=== PATIENT | female | born 1960 | race Caucasian/White ===

== ENCOUNTER 2020-02-18 13:52 | Observation (INO) | payer OTHER ==
[~2020-02-18] VITALS: Ht 157.5 cm; Wt 95.6 kg
--- NOTE | 2020-02-18 14:22 | RAD ---
AP chest. HISTORY: Chest pain AP view was taken of the chest. Lungs are free of infiltrates. Heart is normal in size. The aorta is mildly prominent. There is no effusion. IMPRESSION: 1. No acute infiltrates. Electronically signed by: Elliot Woody MD (02/18/2020 2:20 PM) [id number]
[2020-02-18 14:26] LABS: BASO # 0.1 x10^3/uL (0.0-0.2); BASO % 1 % (0-3); EOS # 0.1 x10^3/uL (0.0-0.7); EOS % 1 % (0-3); HEMATOCRIT 44.2 % (36.0-47.0); LYMPH # 1.8 x10^3/uL (1.0-4.8); LYMPH % 25 % (24-48); MEAN CORPUSCULAR HEMOGLOBIN 32 pg (25-35); MEAN CORPUSCULAR HGB CONC 34 g/dL (31-37); MEAN CORPUSCULAR VOLUME 95 fL (79-100); MONO # 0.6 x10^3/uL (0.0-1.1); MONO % 9 % (0-9); NEUT # 4.6 x10^3uL (1.8-7.7); NEUT % 65 % (31-73); PLATELET COUNT 181 x10^3/uL (140-400); RED BLOOD COUNT 4.65 x10^6/uL (3.50-5.40); WHITE BLOOD COUNT 7.1 x10^3/uL (4.0-11.0)
[2020-02-18] MEDS ORDERED: ASPIRIN CHEWABLE 81 MG TABLET. PO ONE (14:30)
[2020-02-18] MEDS ORDERED: IV NORMAL SALINE 1,000ML 1,000 ML IV ONE (14:30)
--- NOTE | 2020-02-18 14:33 | PHYS DOC ---
General Adult EDM: Chief Complaint: CHEST PAIN HPI: HPI: 59-year-old female presents with chest pain. This was sudden onset while she was sitting on a chair about 1030 this morning. The pain is increased to an 8 out of 10. It is still an 8 out of 10. It is a central pain that radiates through to her mid back. It has some radiation to the left under her left breast. She has not had pain like this before. She denies shortness of breath above baseline or diaphoresis. She has a history of COPD but is not on breathing treatments or oxygen. Her only medications are levothyroxine and Topamax. She has not had a stress test recently. She had one many years ago and it was reported to be negative. She does not see a fender repairer. She has not had an echocardiogram or a catheter. Patient denies fever or chills. Review of Systems: Review of Systems: Constitutional: Denies fever or chills Eyes: Denies change in visual acuity HENT: Denies nasal congestion or sore throat Respiratory: Denies cough or shortness of breath Cardiovascular: Chest pain GI: Denies abdominal pain, nausea, vomiting, bloody stools or diarrhea : Denies dysuria Musculoskeletal: Denies back pain or joint pain Integument: Denies rash. Denies diaphoresis. Neurologic: Denies headache, focal weakness or sensory changes Endocrine: Denies polyuria or polydipsia Lymphatic: Denies swollen glands Psychiatric: Denies depression or anxiety Heart Score: HEART Score for Chest Pain: HEART Score for Chest Pain Response (Comments) Value History Moderately Suspicious 1 ECG Nonspecific Repolarizatio 1 Age >45 - < 65 1 Risk Factors 1 or 2 Risk Factors 1 Troponin < Normal Limit 0 Total 4 Risk Factors: Risk Factors: DM, Current or recent (<one month) smoker, HTN, HLP, family history of CAD, obesity. Risk Scores: Score 0 - 3: 2.5% MACE over next 6 weeks - Discharge Home Score 4 - 6: 20.3% MACE over next 6 weeks - Admit for Clinical Observation Score 7 - 10: 72.7% MACE over next 6 weeks - Early Invasive Strategies Current Medications: Current Meds: Current Medications Medications (Trade) Dose Ordered Sig/Maranda Start Time Stop Time Status Last Admin Dose Admin Aspirin (Aspirin Chewable) 324 mg 1X ONCE 02/18/20 14:30 02/18/20 14:31 DC 02/18/20 14:26 324 MG Sodium Chloride 1,000 ml @ 1,000 mls/hr 1X ONCE 02/18/20 14:30 02/18/20 15:29 Allergies: Allergies: Allergies Coded Allergies Type Severity Reaction Last Updated Verified No Known Drug Allergies 02/18/20 No Physical Exam: PE: Constitutional: Well developed, well nourished, no acute distress, non-toxic appearance. [] HENT: Normocephalic, atraumatic, bilateral external ears normal, oropharynx moist, no oral exudates, nose normal. [] Eyes: PERRLA, EOMI, conjunctiva normal, no discharge. [] Neck: Normal range of motion, no tenderness, supple, no stridor. [] Cardiovascular: Heart rate 46, regular rhythm, no murmur [] Lungs & Thorax: Bilateral breath sounds clear to auscultation [] Abdomen: Bowel sounds normal, soft, no tenderness, no masses, no pulsatile masses. [] Skin: Warm, dry, no erythema, no rash. [] Back: No tenderness, no CVA tenderness. [] Extremities: No tenderness, no cyanosis, no clubbing, ROM intact, no edema. [] Neurologic: Alert and oriented X 3, normal motor function, normal sensory function, no focal deficits noted. [] Psychologic: Affect normal, judgement normal, mood concerned. [] Current Patient Data: Labs: Laboratory Tests Test 02/18/20 14:11 Glucose (Fingerstick) 178 mg/dL (70-99) H EKG: EKG: Sinus bradycardia, rate 46, normal axis, no ST elevations or depressions. [] Radiology/Procedures: Radiology/Procedures: [] Impressions: AP chest. HISTORY: Chest pain AP view was taken of the chest. Lungs are free of infiltrates. Heart is normal in size. The aorta is mildly prominent. There is no effusion. IMPRESSION: 1. No acute infiltrates. Electronically signed by: Elliot Woody MD (02/18/2020 2:20 PM) [id number] DICTATED AND SIGNED BY: ELLIOT WOODY MD DATE: 02/18/20 1420 CC: SHADY DOMINGUEZ DO; YUDELKA PEÑA MD ~ Course & Med Decision Making: Course & Med Decision Making Pertinent Labs and Imaging studies reviewed. (See chart for details) On arrival, patient was given 324 of aspirin and an EKG was performed. The EKG was negative for ST elevation. The patient's labs are unremarkable. Her troponin is negative. Her urinalysis is negative for infection. Patient was having pain so she was given a liter normal saline and nitroglycerin sublingual. The nitro helped with the pain. The patient had an episode of vomiting and was given 5 mg of Zofran. I spoke with Dr. Thompson and he has accepted the patient for admission for chest pain rule out. [] Dragon Disclaimer: Dragon Disclaimer: This electronic medical record was generated, in whole or in part, using a voice recognition dictation system. Departure Departure: Impression: Primary Impression: Chest pain Qualified Codes: R07.2 - Precordial pain Disposition: ADMITTED INPATIENT Admitting Physician: Yves Thompson Condition: STABLE Referrals: YUDELKA PEÑA MD (PCP) Justification of Admission: Justification of Admission: Justification of Admission Dx: Comment: Comments: Chest pain rule out SHADY DOMINGUEZ DO Feb 18, 2020 14:33
[2020-02-18 14:37] LABS: CALCIUM 9.1 mg/dL (8.5-10.1); CREATININE 0.9 mg/dL (0.6-1.0); GFR 64.3; POTASSIUM 4.5 mmol/L (3.5-5.1)
[2020-02-18 14:43] LABS: ALBUMIN 3.5 g/dL (3.4-5.0); ALBUMIN/GLOBULIN RATIO 0.9 (1.0-1.7); TOTAL BILIRUBIN 0.2 mg/dL (0.2-1.0); TOTAL PROTEIN 7.4 g/dL (6.4-8.2)
[2020-02-18] MEDS ORDERED: NITROGLYCERIN SUBLINGUAL 0.4 MG BOTTLE OF 25. SL PRN (14:45)
--- NOTE | 2020-02-18 15:12 | EKG ---
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
[2020-02-18] MEDS ORDERED: ONDANSETRON PF 4 MG/2 ML VIAL. ONE (16:26)
[2020-02-18] MEDS ORDERED: ONDANSETRON PF 4 MG/2 ML VIAL. IVP ONE (16:30)
[2020-02-18] MEDS ORDERED: MORPHINE SULFATE 2 MG/ML DISP.SYRIN. IV ONE (16:45)
--- NOTE | 2020-02-18 18:24 | NUR ---
NURSING NOTE CONSULT CARDIOLOGY CONSULT FOR CARDIOLOGY TOLD TO DR Wells, HERE AT BEDSIDE ASSESSING PTTana CARRANZA RN.
[2020-02-18 18:25] VITALS: BP 180/66
[2020-02-18] MEDS ORDERED: ASPI-630 PO (18:32)
[2020-02-18] MEDS ORDERED: MORPHINE SULFATE 2 MG/ML DISP.SYRIN. IV PRN (18:45)
[2020-02-18] MEDS: PANTOPRAZOLE IV 40 MG VIAL. IVP SCH (19:40)
[2020-02-19 00:23] VITALS: BP 124/78
[2020-02-19 06:53] VITALS: BP 109/67
[2020-02-19] MEDS: PANTOPRAZOLE IV 40 MG VIAL. IVP SCH (08:29)
[2020-02-19] MEDS ORDERED: ASPIRIN CHEWABLE 81 MG TABLET. PO SCH (09:00)
[2020-02-19] MEDS ORDERED: PANTOPRAZOLE 40 MG TABLET. PO ONE (11:45)
[2020-02-19] MEDS ORDERED: PANT40TA3 PO (11:50)
--- NOTE | 2020-02-19 12:30 | SSS ---
ADMIT DATE: 02/19/2020 SHORT STAY SUMMARY HISTORY OF PRESENT ILLNESS: The patient is a 59-year-old female patient who presented to the Emergency Room with complaint of chest pain. The pain started while sitting in a chair about 10:30 in the morning, the pain has increased to an 8/10 in severity. It is central pain that radiates through to her mid back. It has some radiation under her left breast. She has never had this pain before. She denied any shortness of breath above the baseline or diaphoresis. She had a history of COPD and is not on breathing treatment of oxygen. The only medication she is on levothyroxine and Topamax. She has not had any stress test recently. She had one many years ago and was reported to be negative. She has never seen a foxing closer and has not had any echocardiogram or cardiac catheterization. She was extensively investigated in the Emergency Room and had an EKG, which basically showed that she was in sinus bradycardia at a rate of 46 beats per minute, no ST segment elevation. Her chest x-ray was unremarkable and has had one set of cardiac enzymes that was negative. She had a chest x-ray, which was also normal. She was seen in consultation by the foxing closer and apparently recommended that the patient can be discharged, although I have not and according to the nursing staff whom I talk to the foxing closer I have seen her and recommended that the patient can be discharged. PAST MEDICAL HISTORY: Significant for hypothyroidism, COPD, generalized osteoarthritis. PAST SURGICAL HISTORY: Unremarkable. ALLERGIES: She has no known drug allergies. MEDICATIONS: She is currently on following medications. She is on levothyroxine as well as Topamax. She is also on Klonopin and baby aspirin. FAMILY HISTORY: She has 1 sister and 2 brothers, younger one of the brothers has leukemia in remission. She does not know the age or the cause of of her father. Her mother at age of 59 because of complication of diabetes and COPD. SOCIAL HISTORY: She is single, never , has no children. She does smoke about half a pack a day and drinks alcohol occasionally and has not used marijuana for a long time. She is currently on disability. PHYSICAL EXAMINATION: GENERAL: On arrival to the Emergency Room, she looked well and was clearly in no apparent respiratory distress. No pallor, jaundice, cyanosis or thyromegaly. No jugular venous distention. No limb edema. VITAL SIGNS: Her heart rate was 47, blood pressure was 138/82, temperature was 97.9, respiratory rate was 14 and oxygen saturation was 93% on room air. HEAD, EYES, EARS, NOSE AND THROAT: Showed normocephalic and atraumatic. NECK: Supple. HEART: Showed normal first and second heart sounds. No gallop, rub or murmur. CHEST: Clear to auscultation. No crepitation or rhonchi. ABDOMEN: Distended, soft, nontender. No guarding or rigidity. No organomegaly. All hernial orifice intact. Bowel sounds normal. NEUROLOGIC: She was awake, alert, responding appropriately. All cranial nerves intact. EXTREMITIES: She moves extremities without difficulty. She ambulates without assistance or assistive devices. LABORATORY DATA: Her lab work on admission showed a serum sodium 137, potassium 4.5, chloride 102, bicarbonate 28, anion gap of 7, BUN 19, creatinine 0.9, estimated GFR was 64 mL per minute. Her glucose was 201, calcium was 9.1. Total bilirubin, AST, ALT, alkaline phosphatase were normal. Total protein was 7.4, albumin 3.5. Serum lipase was 158. First set of cardiac enzymes showed troponin to be less than 0.017. Her white cell count was 7100, hemoglobin 15, hematocrit 44, MCV 95, and platelet count of 181,000. Her serum lipase was normal at 158. ASSESSMENT AND PLAN: The patient was admitted and was started on IV Protonix together with morphine, nitroglycerin and baby aspirin. When I saw her this morning, she was chest pain free, remained hemodynamically stable. She was seen yesterday by the foxing closer who recommended that she can be discharged and to follow with her primary care physician. We strongly recommended that she should quit smoking. I will do 1 more set of cardiac enzymes to make sure that she has no elevation of her troponin and she can be discharged with a prescription for Protonix. FINAL DISCHARGE DIAGNOSES: Chest pain, atypical, likely due to gastroesophageal reflux disease. Other medical problems include hypothyroidism, chronic obstructive pulmonary disease, osteoarthritis. LEROY POOLE MD DR: MINI/lul JOB#: [id number] / [id number]
--- NOTE | 2020-02-19 14:56 | PDOC ---
PROVIDER NOTE PROVIDER NOTE PROVIDER NOTE Cardiology consultation note (late entry for 02/18/2020) Reason for consultation: Chest pain/bradycardia History of present illness: 59-year-old woman with past medical history as noted below who presents to the hospital in the setting of some chest discomfort. She states that she was in her usual state of health and was walking with her friend to the local restaurant and after drinking and eating something she had some chest pain. This was exacerbated when she was laying down. Upon arrival to the ER she was also noted to have some bradycardia and therefore the cardiology team was consulted. She currently denies any exertional angina, dyspnea, orthopnea or PND. No syncope or palpitations. She has been compliant with her medications according to her. Past medical history is notable for hypothyroidism. Social history is notable for tobacco abuse. She is not employed and she is on disability Family history noncontributory Allergies no known drug allergies Current cardiovascular medications: None Review of systems is negative for 10 out of 14 systems reviewed unless otherwise mentioned above in HPI The patient appeared well nourished and normally developed. Head exam is unremarkable. No scleral icterus or corneal arcus noted. Neck is without jugular venous distension, thyromegaly, or carotid bruits. Carotid upstrokes are brisk bilaterally. Lungs are clear to auscultation and percussion. Cardiac exam reveals the PMI to be normally sized and situated. Rhythm is regular. First and second heart sounds normal. No murmurs, rubs or gallops. Abdominal exam reveals normal bowel sounds, no masses, no organomegaly and no aortic enlargement. Extremities are nonedematous and both femoral and pedal pulses are normal. Msk: No traumua Neuro: No focal deficits EKG is unremarkable Troponins are negative Telemetry is unremarkable Impression: 1. Atypical chest pain with negative biomarkers and EKG, low risk presentation 2. Tobacco abuse 3. Probable gastroesophageal reflux disease Recommendations: 1. At this present time no further inpatient cardiovascular assessment is necessary. The patient may follow-up with her primary care physician and have further evaluation and consider ischemic testing as necessary depending on the improvement of her symptoms. Justification of Admission: Justification of Admission: Justification of Admission Dx: Comment: CHATA LYNCH MD Feb 19, 2020 14:56
[2020-02-19] MEDS ORDERED: ESCITALOPRAM OX10 MG PO (23:52)
[2020-02-19] MEDS ORDERED: CLON0.5T4 PO (23:52)
[2020-02-19] MEDS ORDERED: LEVO25TA4 PO (23:52)
[2020-02-19] MEDS ORDERED: TOPI100T42 PO (23:52)
[2020-02-19] MEDS ORDERED: GABA-586 PO (23:52)
[2020-02-20 08:07] LABS: HEMOGLOBIN A1C 5.4 % (4.8-5.6)
== END 2020-02-19 13:22 | disposition home or self-care (01) ==
LOC: ER 13:52 → 1 SOUTH 18:05 → INTOOBSV 18:05
PROVIDERS: ADMIT Internal Medicine; ATTEND Internal Medicine
DX: R07.89 Other chest pain (principal); K21.9 Gastro-esophageal reflux disease without esophagitis; E03.9 Hypothyroidism, unspecified; F17.210 Nicotine dependence, cigarettes, uncomplicated; J44.9 Chronic obstructive pulmonary disease, unspecified; M15.9 Polyosteoarthritis, unspecified; R00.1 Bradycardia, unspecified; Z79.899 Other long term (current) drug therapy
CPT/HCPCS: 36415; 71045; 80053; 82947; 83036; 83690; 84484; 85025; 93005; 96361; 96374; 96375; 96376; 99285; C9113; G0378; J2270; J2405; J7030; G0379

== ENCOUNTER → 2020-03-31 | Outpatient (CLI) | payer OTHER, MEDICAID ==
[2020-02-21 10:46] VITALS: BP 138/81
[~2020-03-31] MED LIST: ASPI-630 PO; CLON0.5T4 PO; ESCITALOPRAM OX10 MG PO; GABA-586 PO; LEVO25TA4 PO; PANT40TA3 PO; TOPI100T42 PO
[2020-03-31] MEDS: SINCALIDE 1.9 MCG in IV NORMAL SALINE 50ML 30 ML IV ONE (08:30)
--- NOTE | 2020-03-31 10:57 | RAD ---
EXAM: Nuclear hepatobiliary scan. HISTORY: Right upper quadrant pain. TECHNIQUE: Following intravenous administration of 5.5 mCi Tc 99m Choletec, anterior images of the abdomen were obtained at five minute intervals through one hour. Subsequently, 1.9 mcg CCK was administered and additional images to assess gallbladder ejection fraction were obtained. FINDINGS: There is prompt radiotracer uptake by the liver. No focal defect is seen. There is normal excretion into the biliary tree. The gallbladder is visualized within 10 minutes and there is free flow into the duodenum. The gallbladder ejection fraction is 12 percent. IMPRESSION: Decreased gallbladder ejection fraction of 12 percent. Electronically signed by: Yolie Powers MD (03/31/2020 10:54 AM) [id number]
== END | disposition home or self-care (01) ==
LOC: NM 07:52
PROVIDERS: ATTEND Physician Assistant
DX: R10.811 Right upper quadrant abdominal tenderness (principal)
CPT/HCPCS: 78227; A9537; J2805

== ENCOUNTER 2020-04-28 23:45 | Observation (INO) | payer OTHER, MEDICAID ==
[~2020-04-28] VITALS: Ht 157.5 cm; Wt 96.3 kg
--- NOTE | 2020-04-29 00:14 | PHYS DOC ---
Past History Past Medical History: No Pertinent History, Angina, CAD, Diabetes, Gallstones, High Cholesterol, Hypertension Past Surgical History: Other Additional Past Surgical Histo: "laproscopy" Smoking: Cigarettes Alcohol Use: Occasionally General Adult EDM: Chief Complaint: CHEST PAIN HPI: HPI: ".. I think it my gallbladder.. because I got ... bad gall bladder....and I got most sick after a cheese burger.. tonight.. and was to get it out.. but they would not take my COVID test from here.. and they cancel my surgery... but I do have cardiac stuff.. Patient is a 59 year old female who presents with above hx and complaints of severe epigastric pain. Patient stated the pain was more severe after eating a cheeseburger tonight. Patient states she was scheduled for an gallbladder removal however was canceled because was canceled. Patient also scheduled for gallbladder removal. However does have have a history of cardiac disorders. Patient has had previous angioplasty but no stent placement. Patient has past medical history of hypothyroidism, COPD, osteoarthritis, obesity, and deconditioning. Pt. follows with [facility] as primary. Patient reportedly had a negative COVID swab. However COVID swab not accepted for her gallbladder surgery. Review of Systems: Review of Systems: Constitutional: Denies fever or chills Eyes: Denies change in visual acuity HENT: Denies nasal congestion or sore throat Respiratory: Denies cough or shortness of breath Cardiovascular: Complaints of chest pain GI: Complaints of abdominal pain, nausea. Denies vomiting, bloody stools or diarrhea : Denies dysuria Musculoskeletal: Denies back pain or joint pain Integument: Denies rash Neurologic: Denies headache, focal weakness or sensory changes Endocrine: Denies polyuria or polydipsia Lymphatic: Denies swollen glands Psychiatric: Denies depression or anxiety Heart Score: HEART Score for Chest Pain: HEART Score for Chest Pain Response (Comments) Value History Moderately Suspicious 1 ECG Nonspecific Repolarizatio 1 Age >45 - < 65 1 Risk Factors 1 or 2 Risk Factors 1 Troponin < Normal Limit 0 Total 4 Risk Factors: Risk Factors: DM, Current or recent (<one month) smoker, HTN, HLP, family history of CAD, obesity. Risk Scores: Score 0 - 3: 2.5% MACE over next 6 weeks - Discharge Home Score 4 - 6: 20.3% MACE over next 6 weeks - Admit for Clinical Observation Score 7 - 10: 72.7% MACE over next 6 weeks - Early Invasive Strategies Family History: Family History: Family history has 1 sister and 2 brothers. Younger brother has leukemia. Mother age 59 due to diabetes and COPD. Does not know the cause of of father. Current Medications: Current Meds: See nursing for home meds. Allergies: Allergies: Allergies Coded Allergies Type Severity Reaction Last Updated Verified No Known Drug Allergies 02/18/20 No Physical Exam: PE: Constitutional: Moderate acute distress, non-toxic appearance. [] HENT: Normocephalic, atraumatic, bilateral external ears normal, oropharynx moist, no oral exudates, nose normal. [] Eyes: PERRLA, EOMI, conjunctiva normal, no discharge. [] Neck: Normal range of motion, no tenderness, supple, no stridor. [] Cardiovascular: Bradycardic heart rate regular rhythm, no murmur [, PMI to the left Lungs & Thorax: Bilateral breath sounds equal with scattered wheezes on auscultation [] Abdomen: Bowel sounds normal, soft, epigastric tenderness, no masses, no pulsatile masses. Obese. Rebound to epigastric area. Skin: Warm, dry, no erythema, no rash. [] Back: No tenderness, no CVA tenderness. [] Extremities: No tenderness, no cyanosis, no clubbing, ROM intact, ankle edema. No psoas sign. Neurologic: Alert and oriented X 3, normal motor function, normal sensory function, no focal deficits noted. [] Psychologic: Affect anxious, judgement normal, mood normal. [] Current Patient Data: Vital Signs: Vital Signs Date Time Temp Pulse Resp B/P (MAP) Pulse Ox O2 Delivery O2 Flow Rate FiO2 04/29/20 00:03 97.6 51 18 135/96 (109) 99 Room Air EKG: EKG: My interpretation EKG shows a sinus bradycardia 50 bpm. No findings of acute S XIAO or contralateral changes [] Radiology/Procedures: Radiology/Procedures: [][address] [address] IMAGING REPORT Signed PATIENT: JALEN WALLER ACCOUNT: [id number] : 1960 LOCATION: ER AGE: 59 SEX: F EXAM STATUS: REG ER ORD. PHYSICIAN: MARYAN VIZCARRA MD REASON: abd. pain , chest pain PROCEDURE: ACUTE ABDOMEN SERIES PA chest and AP upright supine abdomen x-rays HISTORY: Abdominal pain and chest pain. FINDINGS: Heart size normal. Mild tortuosity aortic arch is stable to prior x-rays. No pneumothorax, pulmonary opacities or pleural effusions. Small calcified granuloma right midlung stable. No pneumoperitoneum. Thoracolumbar disc osteophytes. Mild volume of stool within the right-sided colon. Numerous pelvic calcifications most likely phleboliths grossly stable to prior x-rays. No evidence of small bowel obstruction with no dilation of bowel or increased air-fluid levels. IMPRESSION: No acute process in the chest. No bowel obstruction evident. Electronically signed by: Raul Lux MD (04/29/2020 2:29 AM) [facility] [place] DICTATED AND SIGNED BY: RAUL LUX MD DATE: 04/29/20228 CC: MARYAN VIZCARRA MD; CHRIS HENSON PAC ~ Course & Med Decision Making: Course & Med Decision Making Pertinent Labs and Imaging studies reviewed. (See chart for details) Discussed presentation, testing and tx.plan with Dr. Thompson- Admit for Cardiology consult. Impression: 1. Chest Pain 2. History of coronary artery disease 3. Bradycardia 4. Diabetes = 155 5. Tobacco 6. Hx biliary colic 7. Hx. COVID negative Test- Not at our hospital system. [] Dragon Disclaimer: Dragon Disclaimer: This electronic medical record was generated, in whole or in part, using a voice recognition dictation system. Departure Departure: Disposition: 01 DC HOME SELF CARE/HOMELESS Condition: STABLE Referrals: CHRIS HENSON PAC (PCP) Nesha Disclaimer This chart was dictated in whole or in part using Voice Recognition software in a busy, high-work load, and often noisy Emergency Department environment. It may contain unintended and wholly unrecognized errors or omissions. Dragon Disclaimer This chart was dictated in whole or in part using Voice Recognition software in a busy, high-work load, and often noisy Emergency Department environment. It may contain unintended and wholly unrecognized errors or omissions. MARYAN VIZCARRA MD Apr 29, 2020 00:13
[2020-04-29] MEDS ORDERED: MORPHINE SULFATE 10 MG/ML SYRINGE. SQ ONE (00:45)
[2020-04-29 00:48] LABS: BASO % 0 % (0-3); EOS % 0 % (0-3); HEMATOCRIT 41.6 % (36.0-47.0); HEMOGLOBIN 14.1 g/dL (12.0-15.5); LYMPH # 1.2 x10^3/uL (1.0-4.8); LYMPH % 14 % (24-48); MEAN CORPUSCULAR HEMOGLOBIN 32 pg (25-35); MEAN CORPUSCULAR HGB CONC 34 g/dL (31-37); MEAN CORPUSCULAR VOLUME 95 fL (79-100); MONO # 0.5 x10^3/uL (0.0-1.1); MONO % 5 % (0-9); NEUT # 7.2 x10^3uL (1.8-7.7); NEUT % 80 % (31-73); PLATELET COUNT 179 x10^3/uL (140-400); RED BLOOD COUNT 4.39 x10^6/uL (3.50-5.40); RED CELL DISTRIBUTION WIDTH 13.3 % (11.5-14.5); WHITE BLOOD COUNT 8.9 x10^3/uL (4.0-11.0)
[2020-04-29 00:55] LABS: CALCIUM 9.9 mg/dL (8.5-10.1); CREATININE 0.8 mg/dL (0.6-1.0); GFR 73.7; POTASSIUM 3.8 mmol/L (3.5-5.1)
[2020-04-29] MEDS ORDERED: ONDANSETRON PF 4 MG/2 ML VIAL. IVP ONE (01:00)
[2020-04-29] MEDS ORDERED: MAGNESIUM HYDROXIDE 2,400 MG/30 ML ORAL.SUSP. PO ONE (01:00)
[2020-04-29] MEDS ORDERED: IV RINGERS SOLUTION,LACTATED 1,000 ML IV SCH (01:00)
[2020-04-29] MEDS ORDERED: FAMOTIDINE 20 MG/2 ML VIAL IVP ONE (01:00)
[2020-04-29] MEDS ORDERED: ASPIRIN CHEWABLE 81 MG TABLET. PO ONE (01:00)
[2020-04-29 01:07] LABS: ALBUMIN 3.8 g/dL (3.4-5.0); DIRECT BILIRUBIN 0.1 mg/dL (0.0-0.2); MAGNESIUM 2.3 mg/dL (1.8-2.4); TOTAL BILIRUBIN 0.1 mg/dL (0.2-1.0); TOTAL PROTEIN 7.9 g/dL (6.4-8.2)
--- NOTE | 2020-04-29 01:39 | EKG ---
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
--- NOTE | 2020-04-29 02:32 | RAD ---
PA chest and AP upright supine abdomen x-rays HISTORY: Abdominal pain and chest pain. FINDINGS: Heart size normal. Mild tortuosity aortic arch is stable to prior x-rays. No pneumothorax, pulmonary opacities or pleural effusions. Small calcified granuloma right midlung stable. No pneumoperitoneum. Thoracolumbar disc osteophytes. Mild volume of stool within the right-sided colon. Numerous pelvic calcifications most likely phleboliths grossly stable to prior x-rays. No evidence of small bowel obstruction with no dilation of bowel or increased air-fluid levels. IMPRESSION: No acute process in the chest. No bowel obstruction evident. Electronically signed by: Roberto Carlos Lux MD (04/29/2020 2:29 AM) [facility] [place]
[2020-04-29] MEDS ORDERED: ONDANSETRON PF 4 MG/2 ML VIAL. IVP PRN (03:00)
[2020-04-29] MEDS ORDERED: ACETAMINOPHEN 325 MG TABLET PO PRN (03:00)
[2020-04-29] MEDS ORDERED: ANTI-COAG MONITOR BY PHARMACY. MC PRN (03:15)
[2020-04-29] MEDS ORDERED: ENOXAPARIN ** NOTE DOSE ** SYRINGE SQ ONE (03:30)
[2020-04-29] MEDS: NITROGLYCERIN OINT 1 GM PACKET. TP SCH ×4 (03:30→21:46)
[2020-04-29 03:55] LABS: BARBITURATES NEG (NEG); BENZODIAZEPINES NEG (NEG); CANNABINOIDS NEG (NEG); COCAINE NEG (NEG); METHADONE NEG (NEG); OPIATES POS (NEG); PHENCYCLIDINE NEG (NEG)
[2020-04-29 03:56] LABS: BACTERIA,URINE 0 /HPF (0-FEW); BILIRUBIN,URINE NEG (NEG); CLARITY,URINE CLEAR; COLOR,URINE YELLOW; GLUCOSE,URINE NEG (NEG); NITRITE,URINE NEG (NEG); RBC,URINE 0 /HPF (0-2); SQUAMOUS EPITHELIAL CELL,UR OCC /LPF; UROBILINOGEN,URINE 0.2 mg/dL (0.2 mg/dL); WBC,URINE OCC /HPF (0-4)
[2020-04-29 04:01] LABS: AMPHETAMINE/METHAMPHETAMINE NEG (NEG)
--- NOTE | 2020-04-29 05:25 | NUR ---
The patient, JALEN WALLER, 59 y/o, F admitted by LEROY POOLE MD, was given written information regarding hospital policies, unit procedures and contact persons. Valuables were checked and documented. pts vitals were taken and are stable. pt had no complaints of pain or shortness of air. pt is currently in bed resting.
[2020-04-29 06:25] VITALS: BP 131/79
[2020-04-29] MEDS: ASPIRIN CHEWABLE 81 MG TABLET. PO SCH (08:00)
[2020-04-29] MEDS ORDERED: MORPHINE SULFATE 4 MG/ML DISP.SYRIN. IV PRN (08:30)
[2020-04-29] MEDS: IPRATRPIUM/ALBUTEROL 0.5/2.5MG 3 ML NEBU. NEB SCH ×3 (09:34→19:52)
[2020-04-29 11:11] VITALS: BP 116/75
[2020-04-29] MEDS ORDERED: IOHEXOL 350 MG/ML 100 ML VIAL. IV ONE (13:00)
[2020-04-29 13:20] LABS: HEMOGLOBIN 13.1 g/dL (12.0-15.5); RED BLOOD COUNT 4.11 x10^6/uL (3.50-5.40); RED CELL DISTRIBUTION WIDTH 13.4 % (11.5-14.5); WHITE BLOOD COUNT 7.1 x10^3/uL (4.0-11.0)
[2020-04-29 13:28] LABS: THYROID STIM HORMONE (TSH) 3.668 uIU/mL (0.358-3.740)
[2020-04-29 13:31] LABS: CALCIUM 9.3 mg/dL (8.5-10.1); CREATININE 0.8 mg/dL (0.6-1.0); GFR 73.7; POTASSIUM 3.6 mmol/L (3.5-5.1)
[2020-04-29 13:36] LABS: ALBUMIN 3.3 g/dL (3.4-5.0); ALBUMIN/GLOBULIN RATIO 0.9 (1.0-1.7); TOTAL BILIRUBIN 0.3 mg/dL (0.2-1.0); TOTAL PROTEIN 7.1 g/dL (6.4-8.2)
--- NOTE | 2020-04-29 13:44 | HP ---
ADMIT DATE: 04/29/2020 HISTORY OF PRESENT ILLNESS: The patient is a 59-year-old female patient who presented with a complaint of severe epigastric pain, the pain was more severe after eating a cheeseburger. She apparently was scheduled for gallbladder removal on 05/11/2020; however, the patient has a history of cardiac disorders, she had previous angioplasty, but no stent placement and therefore, the patient was extensively investigated in the Emergency Room and was admitted with chest pain and she has a history of coronary artery disease and also to consult the Cardiology team. PAST MEDICAL HISTORY: Significant for hypothyroidism, chronic obstructive pulmonary disease, coronary artery disease, gastroesophageal reflux disease. She does have hypertension, hyperlipidemia and apparently, she was transferred before to [facility]. She actually underwent cardiac catheterization on 02/21/2020, which basically showed that she has normal left-sided filling pressure, normal left ventricular systolic function with ejection fraction of 55%, one-vessel coronary artery disease involving the left anterior descending without significant obstruction. In any case, the patient was basically extensively investigated in the Emergency Room and had had lab work as well as imaging studies. PAST SURGICAL HISTORY: Unremarkable except for cardiac catheterization. ALLERGIES: She has no known drug allergies. FAMILY HISTORY: She has 1 sister and 2 brothers, the younger one of her brothers has leukemia, in remission. She does not know the age and the cause of of her father. Her mother at the age of 59 because of complication of diabetes and COPD. SOCIAL HISTORY: She is single, never , has no children. She smokes now only 2 cigarettes a day, drinks alcohol occasionally. She has not used any marijuana for a long time. She is currently on disability. MEDICATIONS: She is currently on following medications: She is on aspirin 81 mg once a day, clonazepam 0.5 mg once a day, gabapentin 300 mg at bedtime, topiramate for Topamax 100 mg at bedtime, escitalopram 10 mg daily, and levothyroxine 25 mcg once a day. PHYSICAL EXAMINATION: GENERAL: On arrival to the Emergency Room, the patient looked well and was clearly in no apparent respiratory distress. No pallor, jaundice, cyanosis or thyromegaly. No jugular venous distention. No limb edema. VITAL SIGNS: Her heart rate was 56, blood pressure was 135/96, temperature was 97.6, respiratory rate was 18 and oxygen saturation was 97%. HEAD, EYES, EARS, NOSE AND THROAT: Showed normocephalic, atraumatic. NECK: Supple. HEART: Showed normal first and second heart sounds. No gallop or murmur. CHEST: Clear to auscultation. No crepitation or rhonchi. ABDOMEN: Distended, soft. Tenderness mostly in the epigastric area. No guarding or rigidity. No organomegaly. All hernial orifices intact. Bowel sounds normal. NEUROLOGIC: She is grossly intact. LABORATORY DATA: Her lab work on arrival to the Emergency Room showed a white cell count of 8900, hemoglobin 14, hematocrit 42, MCV 95, and platelet count of 179,000. Her chemistry showed a serum sodium 138, potassium 3.8, chloride 104, bicarbonate 25, anion gap of 9, BUN of 22, creatinine 0.8, estimated GFR was 74 mL per minute. Her glucose 155, calcium was 9.9, magnesium 2.3. Total bilirubin, AST, ALT, alkaline phosphatase were normal. Total beta natriuretic peptide was 44. Troponin was less than 0.017. Total protein was 7.9, albumin was 3.8. Amylase and lipase are both normal. Her prothrombin time was 9.7, INR of 0.9, aPTT was 22 and D-dimer was 0.84. Urinalysis was unremarkable. Toxic screen was positive for opiates. Her acute abdomen series showed that the heart size is normal, mild tortuosity of the aortic arch is stable compared to prior x-rays. No pneumothorax, pulmonary opacities or pleural effusion. Small calcified granuloma in the right mid lung, stable, no pneumoperitoneum, thoracolumbar disk osteophytes, mild volume of stool within the right-sided colon, numerous pelvic calcification, most likely phleboliths, grossly stable to prior x-rays. No evidence of small bowel obstruction with no dilatation of bowel or increased air fluid levels. PLAN: The patient will be admitted. We will do 2 more sets of cardiac enzymes and also repeat her labs, particularly serum lipase and decide on further management accordingly. LEROY POOLE MD DR: MINI/lul JOB#: [id number] / [id number]
[2020-04-29 14:48] VITALS: BP 123/83
--- NOTE | 2020-04-29 15:02 | NUR ---
This nursing surveillance supervisor spoke with nursing surveillance supervisor (Amalia) at [facility] regarding transfer once there is an open bed for GB disease, pt had been scheduled for enma, which was cancelled due to no available covid results. Addendum: 04/29/20 at 1504 by ANJANA HAMM RN Amalia was not aware of the pending transfer. She will check things out and callback.
--- NOTE | 2020-04-29 15:18 | RAD ---
EXAM: CT angiography of the chest with intravenous contrast. HISTORY: Chest pain. TECHNIQUE: Computed tomographic images of the chest were obtained following the administration of intravenous contrast according to angiography protocol. Multiplanar reformatting was performed and three dimensional maximum intensity projection images were obtained. *One or more of the following individualized dose reduction techniques were utilized for this examination: 1. Automated exposure control. 2. Adjustment of the mA and/or kV according to patient size. 3. Use of iterative reconstruction technique. COMPARISON: 02/19/2020. FINDINGS: There is no convincing pulmonary embolism. The heart is normal in size. The aorta is normal in caliber. There is a bovine aortic arch branching pattern, a normal variant. No pathologically enlarged mediastinal lymph node is seen. There are stable mildly prominent bilateral hilar lymph nodes which are likely physiologic or reactive in etiology. There is no pneumothorax or pleural effusion. There is mild apical predominant emphysema. There is posterior dependent and basilar atelectasis. There is mild central bronchial wall thickening. There are few calcified granulomas. There is slight fatty stranding surrounding the gallbladder. The stomach is distended. There are degenerative changes involving the visualized spine. No suspicious osseous lesion is seen. IMPRESSION: 1. No convincing pulmonary embolism. 2. Minimal pulmonary emphysema and central bronchial wall thickening suggesting the sequela of bronchitis. 3. Slight fatty stranding surrounding the gallbladder. This is stable compared to the prior study. Correlate with sonography if there is symptomatology to suggest acute gallbladder pathology. Electronically signed by: Yolie Powers MD (04/29/2020 3:15 PM) [id number]
[2020-04-29 19:41] VITALS: BP 135/82
[2020-04-29] MEDS: ENOXAPARIN ** NOTE DOSE ** SYRINGE SQ SCH (21:45)
[2020-04-29 22:52] VITALS: BP 148/80
[2020-04-30] MEDS ORDERED: ONDANSETRON PF 4 MG/2 ML VIAL. IVP PRN (03:30)
[2020-04-30 05:08] VITALS: BP 155/54
[2020-04-30] MEDS: IPRATRPIUM/ALBUTEROL 0.5/2.5MG 3 ML NEBU. NEB SCH (05:13)
--- NOTE | 2020-04-30 06:42 | NUR ---
Pt slept very little through the night. She c/o back pain, abdominal pain and nausea this night. Some resolution after medications for pain and nausea. No vomiting this night. Will continue to monitor.
[2020-04-30 07:20] LABS: BASO % 0 % (0-3); EOS # 0.1 x10^3/uL (0.0-0.7); EOS % 2 % (0-3); HEMATOCRIT 37.8 % (36.0-47.0); HEMOGLOBIN 12.5 g/dL (12.0-15.5); LYMPH # 1.5 x10^3/uL (1.0-4.8); LYMPH % 24 % (24-48); MEAN CORPUSCULAR HEMOGLOBIN 32 pg (25-35); MEAN CORPUSCULAR HGB CONC 33 g/dL (31-37); MEAN CORPUSCULAR VOLUME 96 fL (79-100); MONO # 0.5 x10^3/uL (0.0-1.1); MONO % 8 % (0-9); NEUT # 4.3 x10^3uL (1.8-7.7); NEUT % 67 % (31-73); PLATELET COUNT 148 x10^3/uL (140-400); RED BLOOD COUNT 3.92 x10^6/uL (3.50-5.40); RED CELL DISTRIBUTION WIDTH 13.2 % (11.5-14.5); WHITE BLOOD COUNT 6.4 x10^3/uL (4.0-11.0)
[2020-04-30 07:38] LABS: CALCIUM 8.8 mg/dL (8.5-10.1); CREATININE 0.8 mg/dL (0.6-1.0); GFR 73.7; POTASSIUM 3.7 mmol/L (3.5-5.1)
[2020-04-30 07:45] LABS: ALBUMIN 3.3 g/dL (3.4-5.0); DIRECT BILIRUBIN 0.1 mg/dL (0.0-0.2); TOTAL BILIRUBIN 0.2 mg/dL (0.2-1.0)
[2020-04-30] MEDS: ENOXAPARIN ** NOTE DOSE ** SYRINGE SQ SCH (08:05)
[2020-04-30] MEDS: ASPIRIN CHEWABLE 81 MG TABLET. PO SCH (08:05)
[2020-04-30] MEDS: NITROGLYCERIN OINT 1 GM PACKET. TP SCH (08:08)
[2020-04-30 11:17] VITALS: BP 135/66
[2020-04-30] MEDS ORDERED: HYDR-2155 PO (11:18)
--- NOTE | 2020-04-30 11:58 | NUR ---
Reviewed discharge instructions with pt, prescription given to her, IV removed. Escorted pt to front of hospital where her was waiting for her.
--- NOTE | 2020-04-30 12:03 | DS ---
DATE OF DISCHARGE: HOSPITAL COURSE: The patient was admitted with severe abdominal pain, mostly in the epigastric and right upper quadrant after eating a cheeseburger. She is known to have chronic cholecystitis and was scheduled for cholecystectomy on 05/11/2020 and because of the severe pain, she was admitted and was initially kept n.p.o. and started on IV fluid. We did start her on a clear liquid diet and repeated all her lab work and she has been advanced as tolerated. She did actually very well. She has been eating and drinking without any difficulty, has no more abdominal pain. Her lab work showed her liver enzymes are all normal, her serum lipase was normal, her white cell count was normal and a decision was made to discharge her home to follow with her primary care physician. PHYSICAL EXAMINATION: GENERAL: When I saw her this morning, she was sitting at the edge of the bed comfortably, in no apparent respiratory distress. No pallor, jaundice, cyanosis or thyromegaly. No jugular venous distention. No limb edema. VITAL SIGNS: Her heart rate was 59, blood pressure 155/54, temperature was 98, respiratory rate 20, and oxygen saturation was 96% on room air. The rest of clinical exam is stable. LABORATORY DATA: Her lab work this morning showed a white cell count 6400, hemoglobin 12.5, hematocrit 37, MCV 96, and platelet count of 148,000. Her serum sodium was 137, potassium 3.7, chloride 104, bicarbonate 24, anion gap of 9, BUN of 12, creatinine 0.8, estimated GFR was 74 mL per minute. Her glucose 111, calcium was 8.8. Total bilirubin, AST, ALT, alkaline phosphatase were normal. Total protein 7, albumin 3.3 and serum lipase was 97. DISCHARGE MEDICATIONS: She was discharged home to continue on hydrocodone/APAP 5/325 one tablet every 6 hours, aspirin 81 mg once a day, clonazepam 0.25 mg daily, escitalopram oxalate 10 mg once a day, gabapentin 300 mg at bedtime, levothyroxine 25 mcg once a day, and topiramate for Topamax 100 mg at bedtime. FINAL DISCHARGE DIAGNOSES: Acute on chronic cholecystitis. Other medical problems include chronic obstructive pulmonary disease, hypothyroidism, coronary artery disease, gastroesophageal reflux disease, hypertension, hyperlipidemia. AHMED M. ZULEMA, MD DR: MINI/lul JOB#: [id number] / [id number]
[2020-05-03 20:09] LABS: HCV ULTRA QUANT PCR 1670000 IU/mL (.)
== END 2020-04-30 12:08 | disposition home or self-care (01) ==
LOC: ER 23:45 → 1 SOUTH 04-29 03:00
PROVIDERS: ADMIT Internal Medicine; ATTEND Internal Medicine
DX: R07.89 Other chest pain (principal); I25.10 Atherosclerotic heart disease of native coronary artery without angina pectoris; K81.2 Acute cholecystitis with chronic cholecystitis; R00.1 Bradycardia, unspecified; E03.9 Hypothyroidism, unspecified; E11.9 Type 2 diabetes mellitus without complications; I10 Essential (primary) hypertension; E78.5 Hyperlipidemia, unspecified; K21.9 Gastro-esophageal reflux disease without esophagitis; J44.9 Chronic obstructive pulmonary disease, unspecified; F17.210 Nicotine dependence, cigarettes, uncomplicated; E78.00 Pure hypercholesterolemia, unspecified; K81.0 Acute cholecystitis; K81.1 Chronic cholecystitis; Z79.82 Long term (current) use of aspirin; Z79.899 Other long term (current) drug therapy
CPT/HCPCS: 36415; 71275; 74022; 80048; 80053; 80061; 80076; 80307; 81001; 82150; 82550; 83690; 83735; 83880; 84443; 84484; 85025; 85027; 85379; 85610; 85730; 86705; 86709; 86803; 87340; 87522; 93005; 94640; 96361; 96372; 96374; 96375; 96376; G0238; G0378; J1650; J2270; J2405; J3010; J3490; J7120; Q9967; G0379

== ENCOUNTER 2020-05-04 02:38 | Emergency (ER) | payer OTHER, MEDICAID ==
[~2020-05-04] VITALS: Ht 157.5 cm; Wt 96.3 kg
[~2020-05-04 02:38] MED LIST changes: +HYDR-2155 PO
[2020-05-04] MEDS ORDERED: IV NORMAL SALINE 1,000ML 1,000 ML IV ONE (03:15)
[2020-05-04] MEDS ORDERED: FAMOTIDINE 20 MG/2 ML VIAL IVP ONE (03:15)
[2020-05-04] MEDS ORDERED: KETOROLAC 15 MG/ML VIAL. IVP ONE (03:15)
--- NOTE | 2020-05-04 03:15 | PHYS DOC ---
Past History Past Medical History: Angina, CAD, Diabetes, High Cholesterol, Hypertension Additional Past Medical Histor: Gallbladder disease Past Surgical History: Other Additional Past Surgical Histo: "laproscopy" Smoking: Cigarettes Alcohol Use: Occasionally Drug Use: None General Adult EDM: Chief Complaint: CHEST PAIN HPI: HPI: 59-year-old female presents with report of sudden upper abdominal pain that radiates to her back which started at 0130 this morning. Reports she had recently eaten some pizza. Patient reports she was watching TV this morning when the pain began. Reports started as pressure and stabbing in the sternum and then went to the middle of her back and to right side. Patient was seen for similar 1 week ago which was thought to be secondary to a bad gallbladder. Patient is scheduled to have surgery on 05/11/2020. Patient denies fever or chills. Denies trauma. Review of Systems: Review of Systems: Constitutional: Denies fever or chills Eyes: Denies redness or eye pain HENT: Denies nasal congestion or sore throat Respiratory: Denies cough or shortness of breath Cardiovascular: Reports chest pain; denies palpitations GI: Reports abdominal pain; denies nausea or vomiting : Denies dysuria or hematuria Musculoskeletal: Denies back pain or joint pain Integument: Denies rash or skin lesions Neurologic: Denies headache, focal weakness or sensory changes Complete systems were reviewed and found to be within normal limits, except as documented in this note. Heart Score: HEART Score for Chest Pain: HEART Score for Chest Pain Response (Comments) Value History Slighlty/Non-Suspicious 0 ECG Normal 0 Age >45 - < 65 1 Risk Factors >3 Risk Factors or Hx CAD 2 Troponin < Normal Limit 0 Total 3 Risk Factors: Risk Factors: DM, Current or recent (<one month) smoker, HTN, HLP, family history of CAD, obesity. Risk Scores: Score 0 - 3: 2.5% MACE over next 6 weeks - Discharge Home Score 4 - 6: 20.3% MACE over next 6 weeks - Admit for Clinical Observation Score 7 - 10: 72.7% MACE over next 6 weeks - Early Invasive Strategies Current Medications: Current Meds: Current Medications Medications (Trade) Dose Ordered Sig/Maranda Start Time Stop Time Status Last Admin Dose Admin Famotidine (Pepcid Vial) 20 mg 1X ONCE 05/04/20 03:15 05/04/20 03:16 UNV Ketorolac Tromethamine (Toradol 15mg Vial) 15 mg 1X ONCE 05/04/20 03:15 05/04/20 03:16 UNV Sodium Chloride 1,000 ml @ 1,000 mls/hr 1X ONCE 05/04/20 03:15 05/04/20 04:14 UNV Allergies: Allergies: Allergies Coded Allergies Type Severity Reaction Last Updated Verified No Known Drug Allergies 02/18/20 No Physical Exam: PE: Constitutional: Well developed, well nourished, no acute distress, non-toxic appearance HENT: Normocephalic, atraumatic Eyes: Conjunctiva normal, no discharge Neck: Normal range of motion, no tenderness, supple Lungs & Thorax: No respiratory distress, equal chest rise and fall Abdomen: Soft, RUQ tenderness, no guarding/rebound tenderness/distention Skin: Warm, dry, no erythema, no rash Back: No tenderness, no CVA tenderness Extremities: No tenderness, ROM intact, no edema Neurologic: Alert and oriented X 3, no focal deficits noted Psychologic: Affect anxious, judgment normal Current Patient Data: Vital Signs: Vital Signs Date Time Temp Pulse Resp B/P (MAP) Pulse Ox O2 Delivery O2 Flow Rate FiO2 05/04/20 02:43 97.9 52 16 146/82 (103) 98 Room Air EKG: EKG: @0244 Sinus bradycardia at 52bpm, NO ST elevation, QRS 92ms, QT/QTc 422/394ms Radiology/Procedures: Radiology/Procedures: [] Course & Med Decision Making: Course & Med Decision Making Pertinent Labs and Imaging studies reviewed. (See chart for details) Patient presents with report of chest pain with radiation to back. Patient was admitted to [facility] 1 week ago for same. Patient with known gallbladder disease (decreased EF on HIDA scan). Patient has been scheduled for cholecystectomy on 05/11/2020. Patient with low cardiac risk factors. [facility] review notes patient with recent CTA chest on 04/29/2020. EKG stable. Labs obtained and posted to chart. Troponin within normal limits. LFT/lipase also WNL. CXR stable. Heart score 3. [facility] report notes patient with recent [place] 5/325mg x 12 tabs filled on 05/01/2020. Patient stable for discharge with outpatient follow-up with PCP/general surgeon. Discussed findings and plan with patient, who acknowledges understanding and agreement. Nesha Disclaimer: Nesha Disclaimer: This electronic medical record was generated, in whole or in part, using a voice recognition dictation system. Departure Departure: Impression: Primary Impression: Atypical chest pain Additional Impression: Biliary colic Disposition: DC HOME SELF CARE/HOMELESS Condition: STABLE Referrals: CHRIS HENSON PAC (PCP) Patient Instructions: Biliary Colic, Chest Pain (Nonspecific), [id number], Fat and Cholesterol Control Diet, [id number] Hyoscyamine Sulfate (LEVSIN-SL) 0.125 Mg Tab.subl 0.125 MG SL Q4-6HRS PRN for PAIN, #14 TAB Prov: TRISTA BECERRIL DO 05/04/20 Famotidine (PEPCID) 20 Mg Tablet 1 TAB PO BID for Gastritis, #20 TAB Prov: TRISTA BECERRIL DO 05/04/20 TRISTA BECERRIL DO May 04, 2020 03:15
[2020-05-04 03:17] LABS: BASO # 0.1 x10^3/uL (0.0-0.2); BASO % 1 % (0-3); EOS # 0.2 x10^3/uL (0.0-0.7); EOS % 2 % (0-3); HEMATOCRIT 43.1 % (36.0-47.0); HEMOGLOBIN 14.4 g/dL (12.0-15.5); LYMPH % 26 % (24-48); MEAN CORPUSCULAR HEMOGLOBIN 32 pg (25-35); MEAN CORPUSCULAR HGB CONC 33 g/dL (31-37); MEAN CORPUSCULAR VOLUME 97 fL (79-100); MONO # 0.6 x10^3/uL (0.0-1.1); MONO % 7 % (0-9); NEUT # 4.9 x10^3uL (1.8-7.7); NEUT % 64 % (31-73); PLATELET COUNT 179 x10^3/uL (140-400); RED BLOOD COUNT 4.47 x10^6/uL (3.50-5.40); RED CELL DISTRIBUTION WIDTH 13.5 % (11.5-14.5); WHITE BLOOD COUNT 7.7 x10^3/uL (4.0-11.0)
[2020-05-04 03:26] LABS: CALCIUM 9.3 mg/dL (8.5-10.1); CREATININE 0.9 mg/dL (0.6-1.0); GFR 64.3; POTASSIUM 3.7 mmol/L (3.5-5.1)
[2020-05-04] MEDS ORDERED: KETOROLAC 15 MG/ML VIAL. ONE (03:31)
[2020-05-04] MEDS ORDERED: FAMOTIDINE 20 MG/2 ML VIAL ONE (03:32)
[2020-05-04] MEDS ORDERED: HYOS0.1265 SL (03:34)
[2020-05-04] MEDS ORDERED: FAMO-63 PO (03:34)
[2020-05-04 03:42] LABS: ALBUMIN 3.7 g/dL (3.4-5.0); ALBUMIN/GLOBULIN RATIO 0.9 (1.0-1.7); TOTAL BILIRUBIN 0.1 mg/dL (0.2-1.0)
--- NOTE | 2020-05-04 03:52 | RAD ---
EXAM: CHEST PA LATERAL 05/04/2020 3:15 AM CLINICAL INDICATION: Chest pain COMPARISON: Chest radiograph 02/18/2020 TECHNIQUE: AP view of the chest FINDINGS: The heart and mediastinum are normal. Lungs are well-expanded and clear. No consolidation, pleural effusion, or pneumothorax. Pulmonary vascularity is normal. The thoracic skeleton is intact. IMPRESSION: Normal chest radiograph. Electronically signed by: Marleny Cloud MD (05/04/2020 3:49 AM) [id number]
[2020-05-04 04:00] VITALS: BP 154/76
--- NOTE | 2020-05-04 06:16 | EKG ---
[address] [address] Test Date: 2020-05-04 Test Time: 02:44:34 Pat Name: JALEN WALLER Department: Room: Gender: F Home Performance Consultant: : 1960 Requested By: TRISTA BECERRIL Order Number: [id number] Reading MD: Measurements Intervals [place] Rate: 52 P: 0 NE: 174 QRS: 39 QRSD: 92 T: 50 QT: 422 QTc: 394 Interpretive Statements SINUS RHYTHM NORMAL ECG RI6.02 No previous ECG available for comparison
== END 2020-05-04 04:10 | disposition home or self-care (01) ==
LOC: ER 02:38
DX: K80.50 Calculus of bile duct without cholangitis or cholecystitis without obstruction (principal); R07.2 Precordial pain; I25.10 Atherosclerotic heart disease of native coronary artery without angina pectoris; E11.9 Type 2 diabetes mellitus without complications; E78.00 Pure hypercholesterolemia, unspecified; I10 Essential (primary) hypertension; F17.210 Nicotine dependence, cigarettes, uncomplicated
CPT/HCPCS: 36415; 71046; 80053; 82553; 83690; 84484; 85025; 85610; 85730; 93005; 96374; 96375; 99285; J1885; J3010; J3490; J7030

== ENCOUNTER 2020-05-16 09:50 | Emergency (ER) | payer OTHER, MEDICAID ==
[~2020-05-16] VITALS: Ht 157.5 cm; Wt 95.0 kg
[~2020-05-16 09:50] MED LIST changes: +FAMO-63 PO; +HYOS0.1265 SL
[2020-05-16] MEDS ORDERED: IV NORMAL SALINE 1,000ML 1,000 ML IV SCH (10:02)
--- NOTE | 2020-05-16 10:06 | PHYS DOC ---
Past History Past Medical History: Angina, CAD, Diabetes, High Cholesterol, Hypertension Additional Past Medical Histor: Gallbladder disease Past Surgical History: Other Additional Past Surgical Histo: "laproscopy" Smoking: Cigarettes Alcohol Use: Occasionally Drug Use: None General Adult EDM: Chief Complaint: ABDOMINAL PAIN HPI: HPI: Patient is a 51-year-old female with a history of gallbladder disease presents with right upper quadrant pain that began proximally 4 hours prior to arrival. Pain is similar to her prior episodes of gallbladder pain located right upper quadrant radiates to her chest into her back. Patient has had some nausea but no vomiting. Patient states the pain is worse with breathing and the pain takes her breath away. Patient denies any recent fevers, chills, cough, sore throat. Pain was severe in intensity earlier and now is moderate. Pain is worse with palpation. Review of Systems: Review of Systems: Constitutional: Denies fever or chills Eyes: Denies change in visual acuity HENT: Denies nasal congestion or sore throat Respiratory: Denies cough but has mild shortness of breath Cardiovascular: Complains of chest pain that radiated from the abdomen GI: Complains of abdominal pain nausea but no vomiting, blood in her stool or diarrhea. : Denies dysuria Musculoskeletal: Complains of back pain but no joint pain Integument: Denies rash Neurologic: Denies headache, focal weakness or sensory changes Endocrine: Denies polyuria or polydipsia Lymphatic: Denies swollen glands Psychiatric: Denies depression or anxiety Current Medications: Current Meds: Current Medications Morphine Sulfate (Morphine 4mg Syringe) 4 mg PRN Q15MIN PRN IV/SQ PAIN GREATER THAN 3/10 Last administered on 05/16/20at 11:01; Start 05/16/20 at 10:15; Stop 05/17/20 at 10:14 Sodium Chloride 1,000 ml @ 1,000 mls/hr Q1H IV Last administered on 05/16/20at 10:19; Start 05/16/20 at 10:02; Stop 05/16/20 at 11:01; Status DC Ondansetron HCl (Zofran) 4 mg 1X ONCE IVP Last administered on 05/16/20at 10:22; Start 05/16/20 at 10:15; Stop 05/16/20 at 10:16; Status DC Active Scripts Active Levsin-Sl (Hyoscyamine Sulfate) 0.125 Mg Tab.subl 0.125 Mg SL Q4-6HRS PRN Pepcid (Famotidine) 20 Mg Tablet 1 Tab PO BID Hydrocodone-Apap 5-325 (Hydrocodone Bit/Acetaminophen) 1 Each Tablet 1 Tab PO PRN Q6HRS PRN 5 Days Reported Clonazepam 0.5 Mg Tablet 0.25 Mg PO DAILY Topamax (Topiramate) 100 Mg Tablet 100 Mg PO QHS Escitalopram Oxalate 10 Mg Tablet 10 Mg PO DAILY Levothyroxine Sodium 25 Mcg Tablet Unknown Dose PO DAILY06 Gabapentin (Gabapentin) 300 Mg Capsule 300 Mg PO QHS Aspirin 81 Mg Tab.chew 81 Mg PO DAILY LAST DOSE GIVEN: DATE: Today TIME: AM NEXT DOSE DUE: DATE: Tomorrow TIME: AM Allergies: Allergies: Allergies Coded Allergies Type Severity Reaction Last Updated Verified No Known Drug Allergies 05/16/20 No Physical Exam: PE: Constitutional: Well developed, well nourished, no acute distress, non-toxic appearance. [] HENT: Normocephalic, atraumatic, bilateral external ears normal, no trismus nose normal. [] Eyes: PERRLA, EOMI, conjunctiva normal, no discharge. [] Neck: Normal range of motion, no tenderness, supple, no stridor. [] Cardiovascular:Heart rate regular rhythm, peripheral pulses intact, cap refill is brisk Lungs & Thorax: Bilateral breath sounds clear, no respiratory distress Abdomen: , soft, no mild right upper quadrant tenderness without guarding or rebound no masses, no pulsatile masses. [] Skin: Warm, dry, no erythema, no rash. [] Back: No tenderness, no CVA tenderness. [] Extremities: No tenderness, no cyanosis, no clubbing, ROM intact, no edema. [] Neurologic: Alert and oriented X 3, normal motor function, normal sensory function, no focal deficits noted. [] Psychologic: Affect normal, judgement normal, mood normal. [] Current Patient Data: Labs: Laboratory Tests Test 05/16/20 10:15 White Blood Count 5.8 x10^3/uL Red Blood Count 4.23 x10^6/uL Hemoglobin 13.5 g/dL Hematocrit 40.3 % Mean Corpuscular Volume 96 fL Mean Corpuscular Hemoglobin 32 pg Mean Corpuscular Hemoglobin Concent 34 g/dL Red Cell Distribution Width 13.6 % Platelet Count 192 x10^3/uL Neutrophils (%) (Auto) 62 % Lymphocytes (%) (Auto) 25 % Monocytes (%) (Auto) 10 % Eosinophils (%) (Auto) 2 % Basophils (%) (Auto) 1 % Neutrophils # (Auto) 3.6 x10^3uL Lymphocytes # (Auto) 1.4 x10^3/uL Monocytes # (Auto) 0.6 x10^3/uL Eosinophils # (Auto) 0.1 x10^3/uL Basophils # (Auto) 0.1 x10^3/uL Sodium Level 138 mmol/L Potassium Level 4.0 mmol/L Chloride Level 105 mmol/L Carbon Dioxide Level 22 mmol/L Anion Gap 11 Blood Urea Nitrogen 19 mg/dL Creatinine 1.0 mg/dL Estimated GFR (Cockcroft-Gault) 56.9 BUN/Creatinine Ratio 19 Glucose Level 117 mg/dL Calcium Level 8.8 mg/dL Total Bilirubin 0.2 mg/dL Aspartate Amino Transf (AST/SGOT) 19 U/L Alanine Aminotransferase (ALT/SGPT) 36 U/L Alkaline Phosphatase 80 U/L Troponin I Quantitative < 0.017 ng/mL Total Protein 7.1 g/dL Albumin 3.4 g/dL Albumin/Globulin Ratio 0.9 Lipase 145 U/L Current Medications Medications (Trade) Dose Ordered Sig/Maranda Route PRN Reason Start Time Stop Time Status Last Admin Dose Admin Morphine Sulfate (Morphine 4mg Syringe) 4 mg PRN Q15MIN PRN IV/SQ PAIN GREATER THAN 3/10 05/16/20 10:15 05/17/20 10:14 05/16/20 11:01 Sodium Chloride 1,000 ml @ 1,000 mls/hr Q1H IV 05/16/20 10:02 05/16/20 11:01 DC 05/16/20 10:19 Ondansetron HCl (Zofran) 4 mg 1X ONCE IVP 05/16/20 10:15 05/16/20 10:16 DC 05/16/20 10:22 Laboratory Tests Test 05/16/20 10:15 White Blood Count 5.8 x10^3/uL Red Blood Count 4.23 x10^6/uL Hemoglobin 13.5 g/dL Hematocrit 40.3 % Mean Corpuscular Volume 96 fL Mean Corpuscular Hemoglobin 32 pg Mean Corpuscular Hemoglobin Concent 34 g/dL Red Cell Distribution Width 13.6 % Platelet Count 192 x10^3/uL Neutrophils (%) (Auto) 62 % Lymphocytes (%) (Auto) 25 % Monocytes (%) (Auto) 10 % Eosinophils (%) (Auto) 2 % Basophils (%) (Auto) 1 % Neutrophils # (Auto) 3.6 x10^3uL Lymphocytes # (Auto) 1.4 x10^3/uL Monocytes # (Auto) 0.6 x10^3/uL Eosinophils # (Auto) 0.1 x10^3/uL Basophils # (Auto) 0.1 x10^3/uL Sodium Level 138 mmol/L Potassium Level 4.0 mmol/L Chloride Level 105 mmol/L Carbon Dioxide Level 22 mmol/L Anion Gap 11 Blood Urea Nitrogen 19 mg/dL Creatinine 1.0 mg/dL Estimated GFR (Cockcroft-Gault) 56.9 BUN/Creatinine Ratio 19 Glucose Level 117 mg/dL Calcium Level 8.8 mg/dL Total Bilirubin 0.2 mg/dL Aspartate Amino Transf (AST/SGOT) 19 U/L Alanine Aminotransferase (ALT/SGPT) 36 U/L Alkaline Phosphatase 80 U/L Troponin I Quantitative < 0.017 ng/mL Total Protein 7.1 g/dL Albumin 3.4 g/dL Albumin/Globulin Ratio 0.9 Lipase 145 U/L Current Medications Medications (Trade) Dose Ordered Sig/Maranda Route PRN Reason Start Time Stop Time Status Last Admin Dose Admin Morphine Sulfate (Morphine 4mg Syringe) 4 mg PRN Q15MIN PRN IV/SQ PAIN GREATER THAN 3/10 05/16/20 10:15 05/17/20 10:14 05/16/20 11:01 Sodium Chloride 1,000 ml @ 1,000 mls/hr Q1H IV 05/16/20 10:02 05/16/20 11:01 DC 05/16/20 10:19 Ondansetron HCl (Zofran) 4 mg 1X ONCE IVP 05/16/20 10:15 05/16/20 10:16 DC 05/16/20 10:22 Vital Signs: Vital Signs Date Time Temp Pulse Resp B/P (MAP) Pulse Ox O2 Delivery O2 Flow Rate FiO2 05/16/20 11:01 18 98 05/16/20 09:52 98.8 64 133/66 (88) EKG: EKG: EKG interpreted by me normal sinus rhythm with rate of 60 normal axis normal intervals normal ST segments [] Radiology/Procedures: Radiology/Procedures: [][address] [id number] IMAGING REPORT Signed PATIENT: JALEN WALLER ACCOUNT: [id number] : 1960 LOCATION: ER AGE: 59 SEX: F EXAM STATUS: REG ER ORD. PHYSICIAN: CHASITY CHILDERS MD REASON: CHEST PAIN PROCEDURE: PORTABLE CHEST 1V EXAM: Chest, single view. HISTORY: Chest pain. COMPARISON: 05/04/2020 FINDINGS: A frontal view of the chest is obtained. There is no infiltrate, pleural effusion or pneumothorax. The heart is normal in size. IMPRESSION: No acute pulmonary finding. Electronically signed by: Yolie Samuels MD (05/16/2020 10:51 AM) [id number] DICTATED AND SIGNED BY: YOLIE SAMUELS MD DATE: 05/16/20 1051 CC: CHASITY CHILDERS MD; CHRIS HENSON PAC ~ Heart Score: HEART Score for Chest Pain: HEART Score for Chest Pain Response (Comments) Value History Slighlty/Non-Suspicious 0 ECG Normal 0 Age >45 - < 65 1 Risk Factors >3 Risk Factors or Hx CAD 2 Troponin < Normal Limit 0 Total 3 Risk Factors: Risk Factors: DM, Current or recent (<one month) smoker, HTN, HLP, family history of CAD, obesity. Risk Scores: Score 0 - 3: 2.5% MACE over next 6 weeks - Discharge Home Score 4 - 6: 20.3% MACE over next 6 weeks - Admit for Clinical Observation Score 7 - 10: 72.7% MACE over next 6 weeks - Early Invasive Strategies Course & Med Decision Making: Course & Med Decision Making Pertinent Labs and Imaging studies reviewed. (See chart for details) [] 59-year-old female presents with right upper quadrant pain that similar to her prior gallbladder pain. Pain radiated to her chest. EKG and troponin are normal, heart score is 3, pain seems to be radiating from her abdomen, doubt acute coronary syndrome. Patient has a normal white blood cell count and no leukocytosis or elevated LFTs or lipase. Doubt acute cholecystitis or choledocholithiasis. Patient is feeling better on reassessment, patient will need follow-up with her surgeon to reschedule her cholecystectomy. Nesha Disclaimer: Nesha Disclaimer: This electronic medical record was generated, in whole or in part, using a voice recognition dictation system. Departure Departure: Impression: Primary Impression: Symptomatic cholelithiasis Disposition: 01 DC HOME SELF CARE/HOMELESS Condition: STABLE Referrals: YUDELKA PEÑA MD (PCP) MAIA PARISH MD 2-3 DAYS Patient Instructions: Biliary Colic Additional Instructions: EMERGENCY DEPARTMENT GENERAL DISCHARGE INSTRUCTIONS THANK YOU for coming to [facility] Emergency Department (ED) today and trusting us with your care. We trust that you had a positive experience in our Emergency Department. If you wish to speak to the department Management you can contact the emergency department at YOUR FOLLOW UP INSTRUCTIONS ARE FOLLOWS: Do you have a private doctor? If you do not have a private doctor, please ask for a resource list of physicians or clinics that may be able to assist you with follow up care. The Emergency Physician has interpreted your x-rays. The X-ray specialist will also review them. If there is a change in the findings you will be notified in 48 hours when at all possible. A lab test or lab culture may have been done, your results will be reviewed and you will be notified if you need a change in treatment. ADDITIONAL INSTRUCTIONS AND INFORMATION Your care today has been supervised by a physician who is specially trained in emergency care. Many problems require more than one evaluation for a complete diagnosis and treatment. We recommend that you schedule your follow up appointment as recommended to ensure complete treatment of your illness or injury. If you are unable to obtain follow up care and continue to have a problem, or if your condition worsens we recommend that you return to the ED. We are not able to safely determine your condition over the phone nor are we able to give sound medical advice over the phone. For these safety reasons, if you call for medical advice we will ask you to come to the ED for further evaluation If you have any questions regarding these discharge instructions please call the ED at . SAFETY INFORMATION In the interest of safety, wellness, and injury prevention; we encourage you to wear your seatbelt, if you smoke; quit smoking, and we encourage your family to use protective helmet for bicycling and other sporting events that present an increased risk for head injury. IF YOUR SYMPTOMS WORSEN OR NEW SYMPTOMS DEVELOP, OR YOU HAVE CONCERNS ABOUT YOUR CONDITION; OR IF YOUR CONDITION WORSENS WHILE YOU ARE WAITING FOR YOUR FOLLOW UP APPOINTMENT; EITHER CONTACT YOUR PRIMARY CARE DOCTOR, THE PHYSICIAN WHOSE NAME AND NUMBER YOU WERE GIVEN, OR RETURN TO THE ED IMMEDIATELY. Scripts Ondansetron (ONDANSETRON ODT) 4 Mg Tab.rapdis 1 TAB PO PRN Q6-8HRS PRN for NAUSEA, #12 TAB Prov: CHASITY CHILDERS MD 05/16/20 Hydrocodone Bit/Acetaminophen (NORCO 5-325 TABLET) 1 Each Tablet 1 TAB PO PRN Q6HRS PRN for PAIN, #12 TAB 0 Refills Prov: CHASITY CHILDERS MD 05/16/20 CHASITY CHILDERS MD May 16, 2020 10:06
[2020-05-16] MEDS ORDERED: ONDANSETRON PF 4 MG/2 ML VIAL. IVP ONE (10:15)
[2020-05-16] MEDS: MORPHINE SULFATE 4 MG/ML DISP.SYRIN. IV/SQ PRN ×2 (10:26→11:01)
[2020-05-16 10:44] LABS: BASO # 0.1 x10^3/uL (0.0-0.2); BASO % 1 % (0-3); EOS # 0.1 x10^3/uL (0.0-0.7); EOS % 2 % (0-3); HEMATOCRIT 40.3 % (36.0-47.0); HEMOGLOBIN 13.5 g/dL (12.0-15.5); LYMPH # 1.4 x10^3/uL (1.0-4.8); LYMPH % 25 % (24-48); MEAN CORPUSCULAR HEMOGLOBIN 32 pg (25-35); MEAN CORPUSCULAR HGB CONC 34 g/dL (31-37); MEAN CORPUSCULAR VOLUME 96 fL (79-100); MONO # 0.6 x10^3/uL (0.0-1.1); MONO % 10 % (0-9); NEUT # 3.6 x10^3uL (1.8-7.7); NEUT % 62 % (31-73); PLATELET COUNT 192 x10^3/uL (140-400); RED BLOOD COUNT 4.23 x10^6/uL (3.50-5.40); RED CELL DISTRIBUTION WIDTH 13.6 % (11.5-14.5); WHITE BLOOD COUNT 5.8 x10^3/uL (4.0-11.0)
[2020-05-16 10:50] LABS: CALCIUM 8.8 mg/dL (8.5-10.1); GFR 56.9
--- NOTE | 2020-05-16 10:54 | RAD ---
EXAM: Chest, single view. HISTORY: Chest pain. COMPARISON: 05/04/2020 FINDINGS: A frontal view of the chest is obtained. There is no infiltrate, pleural effusion or pneumothorax. The heart is normal in size. IMPRESSION: No acute pulmonary finding. Electronically signed by: Yolie Powers MD (05/16/2020 10:51 AM) [id number]
[2020-05-16 10:56] LABS: ALBUMIN 3.4 g/dL (3.4-5.0); ALBUMIN/GLOBULIN RATIO 0.9 (1.0-1.7); TOTAL BILIRUBIN 0.2 mg/dL (0.2-1.0); TOTAL PROTEIN 7.1 g/dL (6.4-8.2)
[2020-05-16] MEDS ORDERED: ONDA4TAB12 PO (11:21)
[2020-05-16] MEDS ORDERED: HYDR-3165 PO (11:21)
[2020-05-16 11:50] VITALS: BP 133/66
[2020-05-16 11:57] LABS: BACTERIA,URINE MANY /HPF (0-FEW); BILIRUBIN,URINE NEG (NEG); CLARITY,URINE CLOUDY; COLOR,URINE YELLOW; GLUCOSE,URINE NEG (NEG); NITRITE,URINE NEG (NEG); SQUAMOUS EPITHELIAL CELL,UR MOD /LPF; UROBILINOGEN,URINE 0.2 mg/dL (0.2 mg/dL)
--- NOTE | 2020-05-16 13:54 | EKG ---
[address] [address] Test Date: 2020-05-16 Test Time: 10:11:57 Pat Name: JALEN WALLER Department: Room: Gender: F Report Manager: CARLOS : 1960 Requested By: CHASITY CHILDERS Order Number: [id number] Reading MD: Measurements Intervals [place] Rate: 60 P: 0 DC: 168 QRS: 35 QRSD: 88 T: 52 QT: 396 QTc: 400 Interpretive Statements SINUS RHYTHM NORMAL ECG RI6.02 No previous ECG available for comparison
== END 2020-05-16 11:40 | disposition home or self-care (01) ==
LOC: ER 09:50
DX: K80.80 Other cholelithiasis without obstruction (principal); I25.10 Atherosclerotic heart disease of native coronary artery without angina pectoris; E11.9 Type 2 diabetes mellitus without complications; E78.00 Pure hypercholesterolemia, unspecified; I10 Essential (primary) hypertension; F17.210 Nicotine dependence, cigarettes, uncomplicated
CPT/HCPCS: 36415; 71045; 80053; 81001; 83690; 84484; 85025; 87086; 93005; 96361; 96374; 96375; 96376; 99285; J2270; J2405; J7030

== ENCOUNTER 2020-06-05 23:47 | Emergency (ER) | payer OTHER, MEDICAID ==
[~2020-06-05] VITALS: Ht 157.5 cm; Wt 95.0 kg
[~2020-06-05 23:47] MED LIST changes: +HYDR-3165 PO; +ONDA4TAB12 PO
[2020-06-05] MEDS ORDERED: IV NORMAL SALINE 1,000ML 1,000 ML IV SCH (23:53)
[2020-06-06] MEDS ORDERED: ONDANSETRON PF 4 MG/2 ML VIAL. IVP ONE
[2020-06-06] MEDS ORDERED: FAMOTIDINE 20 MG/2 ML VIAL IVP ONE
--- NOTE | 2020-06-06 00:12 | PHYS DOC ---
Past History Past Medical History: Angina, CAD, Diabetes, High Cholesterol, Hypertension Additional Past Medical Histor: Gallbladder disease Past Surgical History: Other Additional Past Surgical Histo: "laproscopy" Smoking: Cigarettes Alcohol Use: Occasionally Drug Use: None General Adult EDM: Chief Complaint: ABDOMINAL PAIN HPI: HPI: Patient is a 59 year old female who presents for evaluation of moderate to severe upper abdominal pain. Onset of symptoms about 2 hours prior to arrival. Patient called EMS for transport to the hospital. Patient has a known history of cholecystitis. In fact she was scheduled for surgery on the [place] but could not get a ride to the hospital. Dr. Andrew is her surgeon at [facility]. Earlier this evening she did eat a hamburger. Patient has episodes of nausea with vomiting as well. There is no reported fevers and chills. She has no reported black, bloody or tarry stools. Patient has not followed up with her surgeon since that scheduled surgical appt. Review of Systems: Review of Systems: Constitutional: Denies fever or chills Eyes: Denies change in visual acuity HENT: Denies nasal congestion or sore throat Respiratory: Denies cough or shortness of breath Cardiovascular: Denies chest pain or edema GI: upper abdominal pain with nausea and vomiting, no bloody stools or diarrhea : Denies dysuria Musculoskeletal: Denies back pain or joint pain Integument: Denies rash Neurologic: Denies headache, focal weakness or sensory changes Endocrine: Denies polyuria or polydipsia Lymphatic: Denies swollen glands Psychiatric: Denies depression or anxiety Current Medications: Current Meds: Current Medications Medications (Trade) Dose Ordered Sig/Maranda Start Time Stop Time Status Last Admin Dose Admin Famotidine (Pepcid Vial) 20 mg 1X ONCE 06/06/20 00:00 06/06/20 00:01 UNV 06/06/20 00:02 20 MG Fentanyl Citrate (Fentanyl 2ml Vial) 50 mcg 1X ONCE 06/06/20 00:00 06/06/20 00:01 UNV 06/06/20 00:02 50 MCG Ondansetron HCl (Zofran) 4 mg 1X ONCE 06/06/20 00:00 06/06/20 00:01 UNV 06/06/20 00:02 4 MG Sodium Chloride 1,000 ml @ 1,000 mls/hr Q1H 06/05/20 23:53 06/06/20 00:52 UNV 06/06/20 00:03 1,000 MLS/HR Allergies: Allergies: Allergies Coded Allergies Type Severity Reaction Last Updated Verified No Known Drug Allergies 05/16/20 No Physical Exam: PE: Constitutional: Well developed, well nourished, moderate acute distress. [] HENT: Normocephalic, atraumatic, bilateral external ears normal, oropharynx moist, no oral exudates, nose normal. [] Eyes: PERRL, EOMI, conjunctiva normal, no discharge. [] Neck: Normal range of motion, no tenderness, supple. [] Cardiovascular:Heart rate regular rhythm, no murmur [] Lungs & Thorax: Bilateral breath sounds clear to auscultation [] Abdomen: Bowel sounds normal, soft, moderate right upper abd tenderness, no masses. [] Skin: Warm, dry, no erythema, no rash. [] Back: No tenderness. [] Extremities: No tenderness, no cyanosis, ROM intact, no edema. [] Neurologic: Alert and oriented X 3, normal motor function, normal sensory function, no focal deficits noted. [] Psychologic: Affect normal, judgement normal, mood abnormal. [] Current Patient Data: Labs: Laboratory Tests Test 06/05/20 23:55 06/06/20 02:20 White Blood Count 8.5 x10^3/uL Red Blood Count 4.44 x10^6/uL Hemoglobin 14.1 g/dL Hematocrit 42.5 % Mean Corpuscular Volume 96 fL Mean Corpuscular Hemoglobin 32 pg Mean Corpuscular Hemoglobin Concent 33 g/dL Red Cell Distribution Width 13.4 % Platelet Count 210 x10^3/uL Neutrophils (%) (Auto) 59 % Lymphocytes (%) (Auto) 31 % Monocytes (%) (Auto) 9 % Eosinophils (%) (Auto) 2 % Basophils (%) (Auto) 1 % Neutrophils # (Auto) 5.0 x10^3uL Lymphocytes # (Auto) 2.6 x10^3/uL Monocytes # (Auto) 0.7 x10^3/uL Eosinophils # (Auto) 0.1 x10^3/uL Basophils # (Auto) 0.1 x10^3/uL Sodium Level 139 mmol/L Potassium Level 3.9 mmol/L Chloride Level 105 mmol/L Carbon Dioxide Level 22 mmol/L Anion Gap 12 Blood Urea Nitrogen 24 mg/dL Creatinine 0.8 mg/dL Estimated GFR (Cockcroft-Gault) 73.7 BUN/Creatinine Ratio 30 Glucose Level 127 mg/dL Calcium Level 9.0 mg/dL Total Bilirubin 0.1 mg/dL Aspartate Amino Transf (AST/SGOT) 21 U/L Alanine Aminotransferase (ALT/SGPT) 35 U/L Alkaline Phosphatase 81 U/L Troponin I Quantitative < 0.017 ng/mL Total Protein 7.6 g/dL Albumin 3.6 g/dL Albumin/Globulin Ratio 0.9 Lipase 169 U/L Urine Collection Type Unknown Urine Color Yellow Urine Clarity Clear Urine pH 7.0 Urine Specific [place] 1.025 Urine Protein Neg Urine Glucose (UA) Neg mg/dL Urine Ketones (Stick) 40 mg/dL Urine Blood Neg Urine Nitrite Neg Urine Bilirubin Neg Urine Urobilinogen Dipstick 0.2 mg/dL Urine Leukocyte Esterase Neg Urine RBC 0 /HPF Urine WBC Occ /HPF Urine Squamous Epithelial Cells Many /LPF Urine Bacteria 0 /HPF Current Medications Medications (Trade) Dose Ordered Sig/Maranda Route PRN Reason Start Time Stop Time Status Last Admin Dose Admin Sodium Chloride 1,000 ml @ 1,000 mls/hr Q1H IV 06/05/20 23:53 06/06/20 00:52 DC 06/06/20 00:03 Famotidine (Pepcid Vial) 20 mg 1X ONCE IVP 06/06/20 00:00 06/06/20 00:18 DC 06/06/20 00:02 Ondansetron HCl (Zofran) 4 mg 1X ONCE IVP 06/06/20 00:00 06/06/20 00:18 DC 06/06/20 00:02 Fentanyl Citrate (Fentanyl 2ml Vial) 50 mcg 1X ONCE IVP 06/06/20 00:00 06/06/20 00:18 DC 06/06/20 00:02 Fentanyl Citrate (Fentanyl 2ml Vial) 50 mcg 1X ONCE IVP 06/06/20 01:15 06/06/20 01:19 DC 06/06/20 01:17 EKG: EKG: Sinus bradycardia rate 58, otherwise unremarkable EKG, not STEMI [] Radiology/Procedures: Radiology/Procedures: [][address] [address] IMAGING REPORT Signed PATIENT: JALEN WALLER ACCOUNT: [id number] : 1960 LOCATION: ER AGE: 59 SEX: F EXAM STATUS: REG ER ORD. PHYSICIAN: ULISES MILLARD DO REASON: abd pain, ASTHMA, COPD, HTN, ANGINA PROCEDURE: PORTABLE CHEST 1V PORTABLE CHEST 1V Clinical History: Reason: abd pain, ASTHMA, COPD, HTN, ANGINA / Spl. Instructions: / History: Technique: AP view of the chest was obtained at 06/05/2020 11:53 PM. Comparison: May 16, 2020. Findings: The cardiomediastinal silhouette is normal. The pulmonary vasculature is normal. The lungs and pleural margins are clear. Impression: No evidence of an acute cardiopulmonary process. Electronically signed by: Ailyn James III, MD (06/06/2020 1:55 AM) [facility] DICTATED AND SIGNED BY: AILYN JAMES III, MD DATE: 06/06/20 0155 CC: ULISES MILLARD DO; CHRIS HENSON PAC ~ Heart Score: Risk Factors: Risk Factors: DM, Current or recent (<one month) smoker, HTN, HLP, family history of CAD, obesity. Risk Scores: Score 0 - 3: 2.5% MACE over next 6 weeks - Discharge Home Score 4 - 6: 20.3% MACE over next 6 weeks - Admit for Clinical Observation Score 7 - 10: 72.7% MACE over next 6 weeks - Early Invasive Strategies Course & Med Decision Making: Course & Med Decision Making Pertinent Labs and Imaging studies reviewed. (See chart for details) [] Dragon Disclaimer: Dragon Disclaimer: This electronic medical record was generated, in whole or in part, using a voice recognition dictation system. 0315 stable, feeling better at this time. Patient has normal blood work and urinalysis. She does not meet criteria for admission to the hospital at this time. Patient will call and see Dr. Andrew right away and see if she can get her cholecystectomy rescheduled. Strict low fat dietary instructions discussed. Prescription for limited number of [place] and Zofran given Departure Departure: Impression: Primary Impression: Upper abdominal pain Additional Impression: Biliary colic Disposition: 01 DC HOME SELF CARE/HOMELESS Condition: STABLE Referrals: CHRIS HENSON PAC (PCP) MAIA ANDREW MD Patient Instructions: Biliary Colic Additional Instructions: [place] diet, no spicy foods, low-fat diet, call and see your general surgeon right away to see if your gallbladder surgery can be rescheduled Scripts Ondansetron Hcl (ZOFRAN) 4 Mg Tablet 1 TAB PO PRN Q6HRS PRN for NAUSEA, #12 TAB Prov: ULISES MILLARD DO 06/06/20 Hydrocodone Bit/Acetaminophen (NORCO 5-325 TABLET) 1 Each Tablet 1 TAB PO PRN Q6HRS PRN for PAIN, #14 TAB 0 Refills Prov: ULISES MILLARD DO 06/06/20 ULISES MILLARD DO Jun 06, 2020 00:12
--- NOTE | 2020-06-06 00:14 | EKG ---
[facility] ED [facility] [place] [id number] Test Date: 2020-06-06 Test Time: 00:09:02 Pat Name: JALEN WALLER Department: Room: Gender: F Pharmacist Manager: : 1960 Requested By: ULISES MILLARD Order Number: [id number] Reading MD: Measurements Intervals [place] Rate: 58 P: 49 RI: 202 QRS: 38 QRSD: 84 T: 50 QT: 426 QTc: 418 Interpretive Statements SINUS RHYTHM LEFT ATRIAL ABNORMALITY ABNORMAL ECG RI6.02 No previous ECG available for comparison
[2020-06-06 00:27] LABS: BASO # 0.1 x10^3/uL (0.0-0.2); BASO % 1 % (0-3); EOS # 0.1 x10^3/uL (0.0-0.7); EOS % 2 % (0-3); HEMATOCRIT 42.5 % (36.0-47.0); HEMOGLOBIN 14.1 g/dL (12.0-15.5); LYMPH # 2.6 x10^3/uL (1.0-4.8); LYMPH % 31 % (24-48); MEAN CORPUSCULAR HEMOGLOBIN 32 pg (25-35); MEAN CORPUSCULAR HGB CONC 33 g/dL (31-37); MEAN CORPUSCULAR VOLUME 96 fL (79-100); MONO # 0.7 x10^3/uL (0.0-1.1); MONO % 9 % (0-9); NEUT % 59 % (31-73); PLATELET COUNT 210 x10^3/uL (140-400); RED BLOOD COUNT 4.44 x10^6/uL (3.50-5.40); RED CELL DISTRIBUTION WIDTH 13.4 % (11.5-14.5); WHITE BLOOD COUNT 8.5 x10^3/uL (4.0-11.0)
[2020-06-06 00:34] LABS: CREATININE 0.8 mg/dL (0.6-1.0); GFR 73.7; POTASSIUM 3.9 mmol/L (3.5-5.1)
[2020-06-06 00:40] LABS: ALBUMIN 3.6 g/dL (3.4-5.0); ALBUMIN/GLOBULIN RATIO 0.9 (1.0-1.7); TOTAL BILIRUBIN 0.1 mg/dL (0.2-1.0); TOTAL PROTEIN 7.6 g/dL (6.4-8.2)
--- NOTE | 2020-06-06 01:58 | RAD ---
PORTABLE CHEST 1V Clinical History: Reason: abd pain, ASTHMA, COPD, HTN, ANGINA / Spl. Instructions: / History: Technique: AP view of the chest was obtained at 06/05/2020 11:53 PM. Comparison: May 16, 2020. Findings: The cardiomediastinal silhouette is normal. The pulmonary vasculature is normal. The lungs and pleural margins are clear. Impression: No evidence of an acute cardiopulmonary process. Electronically signed by: Alexandro King III, MD (06/06/2020 1:55 AM) [facility]ENTER[facility]IS MIGUEL
[2020-06-06 03:15] LABS: BILIRUBIN,URINE NEG (NEG); CLARITY,URINE CLEAR; COLOR,URINE YELLOW; GLUCOSE,URINE NEG (NEG)
[2020-06-06 03:16] LABS: BACTERIA,URINE 0 /HPF (0-FEW); NITRITE,URINE NEG (NEG); RBC,URINE 0 /HPF (0-2); SQUAMOUS EPITHELIAL CELL,UR MANY /LPF; UROBILINOGEN,URINE 0.2 mg/dL (0.2 mg/dL); WBC,URINE OCC /HPF (0-4)
[2020-06-06] MEDS ORDERED: ONDA4TAB7 PO (03:47)
[2020-06-06] MEDS ORDERED: HYDR-3165 PO (03:47)
[2020-06-06 04:00] VITALS: BP 144/109
== END 2020-06-06 04:00 | disposition home or self-care (01) ==
LOC: ER 23:47
DX: K80.50 Calculus of bile duct without cholangitis or cholecystitis without obstruction (principal); R11.2 Nausea with vomiting, unspecified; R10.11 Right upper quadrant pain; I25.10 Atherosclerotic heart disease of native coronary artery without angina pectoris; E11.9 Type 2 diabetes mellitus without complications; E78.00 Pure hypercholesterolemia, unspecified; I10 Essential (primary) hypertension; F17.210 Nicotine dependence, cigarettes, uncomplicated
CPT/HCPCS: 36415; 71045; 80053; 81001; 83690; 84484; 85025; 93005; 96361; 96374; 96375; 96376; 99285; J2405; J3010; J3490; J7030

== ENCOUNTER → 2020-07-05 | Outpatient (CLI) | payer OTHER, MEDICAID ==
[2020-06-06 04:00] VITALS: BP 144/109
[~2020-07-05] MED LIST changes: +ONDA4TAB7 PO
--- NOTE | 2020-07-19 16:50 | RAD ---
Examination: Bilateral screening mammogram INDICATION: Screening COMPARISON: 09/10/2016 bilateral mammogram TECHNIQUE: CC and MLO views of both breasts were obtained with 2-D and 3-D technique and reviewed wit h computer-aided detection. FINDINGS: The breasts are almost entirely fatty replaced. There is no dominant mass, suspicious calcification or architectural distortion. IMPRESSION: Negative bilateral mammogram. No evidence of malignancy. BI-RADS Category 1 Negative Recommend return to routine screening next due in one year. Patient entered into a reminder system with targeted due date for next mammogram. Electronically signed by: Melquiades Lao MD (07/19/2020 4:47 PM) [id number]
== END ==
LOC: MAMMO 12:51
PROVIDERS: ATTEND Physician Assistant
DX: Z12.31 Encounter for screening mammogram for malignant neoplasm of breast (principal)
CPT/HCPCS: 77063; 77067